=== PATIENT | male | born 2005 | race Caucasian/White ===

== ENCOUNTER 2025-09-20 13:54 | Emergency (ER) | payer BC, SELFPAY ==
--- NOTE | ~2025-09-20 | CT_ITS ---
CLINICAL HISTORY: abdominal pain. blood is stool. colitits? CT abdomen and pelvis without contrast Comparison: None provided Findings: Limited examination without contrast. The lung bases are clear. The gallbladder and solid organs are within normal limits. No renal stones. No bowel obstruction, pneumoperitoneum, or pneumatosis. There is bowel wall thickening of the descending and sigmoid colon. Small pelvic free fluid. Pelvic contents unremarkable. No evidence of acute appendicitis. No acute fracture. IMPRESSION: Bowel wall thickening of the colon concerning for colitis. This document has been electronically signed by: Dianelys Arredondo MD on 09/20/2025 18:44:55
[2025-09-20 14:13] VITALS: BP 138/64; PULSE 75; RESP 18; TEMP 36.8; O2SAT 98; BMI 21.9
--- NOTE | 2025-09-20 14:29 | ED_ITS ---
HPI - General Adult General Chief complaint: GI Bleed Stated complaint: Nausea Vomiting Diarrhea Time Seen by Provider: 09/20/25 19:20 Source: patient Mode of arrival: ambulatory Limitations: no limitations History of Present Illness ED Provider: Hunter Bailey [facility] narrative: 19 yold male presents to the ED for lower abdominal pain and diarrhea after eating a fish meal. patient states slight red blood in stool. Deneies large amount of bleeding, or hemmohrage. patient sttes no recent trauma. Related Data Previous Rx's ?Medication ?Instructions ?Recorded ciprofloxacin HCl 500 mg tablet 500 mg PO BID 7 days # 14 tabs 09/20/25 metronidazole 500 mg tablet 500 mg PO BID 7 days #14 t abs 09/20/25 Allergies Allergy/AdvReac Type Severity Reaction Status Date / Time bonny Allergy Anaphylaxis Verified 09/20/25 14:16 Review of Systems 2 Review of Systems: lower abdominal pain Yes all other systems are reviewed and are negative PMFSH Social History Social History Advance Directives: No Advance Directives Information Provided: No Physical Exam ED Vital Signs: Vital Signs - 24 hr 09/20/25 14:13 Temperature 98.2 F Pulse Rate 75 Respiratory Rate 18 Blood Pressure 138/64 Pulse Oximetry 98 Oxygen Delivery Method Room Air BMI result Body Mass Index 21.9 Const General: cooperative, healthy appearing, comfortable, no acute distress, well developed, alert, awake and Physically active Orientation/consciousness: patient oriented x3 HENMT Head: Yes normal to inspection, Yes No palpable skull fracture present, Yes normocephalic and Yes atraumatic Eyes General: appearance normal, both eyes and all related structures Neck Neck: Yes normal visual inspection, Yes full ROM, Yes no lymphadenopathy, Yes no meningeal signs, Yes trachea midline, Yes supple, No anterior neck swelling and No tender Chest Chest palpation & inspection: normal inspection of the chest and normal palpation of entire chest wall Resp Effort & Inspection: normal respiratory effort and able to speak in complete sentences Auscultation: clear to auscultation bilaterally Cardio Jugular venous distension: no JVD Heart sounds: S1 normal heart sound present and S2 normal heart sound present GI Inspection: Yes normal to inspection Palpation (GI): Soft to palpation, not firm, nontender, no guarding and not rigid General: Yes no CVA tenderness Back/Spine/Pelvis Back: no CVA tenderness and No back tenderness Skin General skin exam: no rashes or lesions noted, elasticity normal and turgor normal Neuro General: patient oriented x3, gait normal, tone normal, moves all extremities, Normal light touch and pain sensation, no meningeal signs, no focal motor deficits, CN's II-XI intact bilaterally and normal sensation to monofilament Extrem General: Yes normal to inspection, Yes full ROM and Yes capillary refill normal Psych Appearance: grossly normal, well kempt and not disheveled Course Course Course Narrative: RME: Medications Administered Discontinued Medications Generic Name Dose Route Start Last Admin Trade Name Romina PRN Reason Stop Dose Admin Metronidazole 500 mg 09/20/25 19:41 09/20/25 19:47 Metronidazole 500 Mg Tablet PO 09/20/25 19:42 500 mg ONCE ONE Administration Medical Decision Making Medical Decision Making [facility] Narrative: 19-year-old male well-appearing presents to ED for lower abdominal pain and diarrhea. Labs are normal. Cat scan shows colitis. Negative for abscess on CAT scan. Patient will be discharged with antibiotics. Patient informed follow up with Gastroenterology primary care provider. NOt albe to do rectal due to patient being in provider triage. patient states no recent blood in stool or hemorrhage. Not suspecting GI bleed, perofration, peritonititis, or any other life threatening etiology. patient explained worrisome signs and informed to retun to the ED. Differential Diagnosis Differential Diagnoses: The differential diagnosis associated with the presentation includes (colitits, appendicitits) Admission/Observation Consideration of admission/observation: Escalation of care including admission/observation considered Lab Data [facility] Lab Attestation statement: I reviewed the patient's lab results. 09/20/25 14:47 09/20/25 14:47 Labs: Lab Results 09/20/25 09/20/25 Range/Units 14:47 15:51 WBC 7.9 (4.8-10.8) X10*3/uL RBC 5.06 (4.60-5.80) X10*6/uL Hgb 15.4 (14.0-18.0) g/dl Hct 45.4 (42.0-52.0) % MCV 89.7 (80.0-98.0) fL MCH 30.4 (27.0-33.0) pg MCHC 33.9 (31.0-36.0) g/dl RDW 11.8 (11.0-16.0) % Plt Count 216 (160-400) X10*3/uL MPV 9.4 (9.4-12.4) fL Immature Gran % (Auto) 0.1 (0.0-0.4) % Neut % (Auto) 71.3 (45-73) % Lymph % (Auto) 16.6 L (20-40) % [place] % (Auto) 11.2 H (2-11) % Eos % (Auto) 0.4 (0-4) % Baso % (Auto) 0.4 (0-2) % Lymph # (Auto) 1.3 (1.2-4.9) X10*3/uL [place] # (Auto) 0.9 (0.1-1.2) X10*3/uL Eos # (Auto) 0.0 (0.0-0.4) X10*3/uL Baso # (Auto) 0.0 (0.0-0.2) X10*3/uL Abs Immat Gran (auto) 0.01 (0.00-0.03) X10*3/uL Absolute Neuts (auto) 5.6 (2.0-8.3) x10*3/uL Absolute Nucleated RBC 0.000 (0.0-0.012) X10*3/uL Nucleated RBC % (auto) 0.0 (0.0-0.2) /100WBC PT 13.4 (11.2-13.5) SEC INR 1.1 (0.9-1.1) APTT 28.6 (26.7-34.1) SEC Sodium 142 (135-145) mmol/L Potassium 5.1 (3.3-5.1) mmol/L Chloride 103 (96-108) mmol/L Carbon Dioxide 30 H (22-29) mmol/L Anion Gap 14 (12-20) BUN 11 (9-16) mg/dL Creatinine 0.98 (0.5-1.4) mg/dL Estim Creat Clear Calc 104.7 Estimated GFR > 60 Random Glucose 94 (60-115) mg/dL Calcium 10.2 (8.4-10.2) mg/dL Total Bilirubin 0.5 (0.0-1.0) mg/dL AST 27 (5-37) U/L ALT 21 (0-40) U/L Alkaline Phosphatase 78 (39-117) U/L Total Protein 8.0 (6.5-8.0) g/dL Albumin 4.8 (3.5-5.0) g/dL Urine Color Yellow Urine Appearance Clear Urine pH 6.0 (5.0-9.0) Ur Specific [place] >= 1.030 H (1.005-1.025) Urine Protein Trace (Neg-Trace) mg/dL Urine Glucose (UA) Negative (Negative) mg/dL Urine Ketones 15 (Negative) mg/dL Urine Blood Negative (Negative) Urine Nitrite Negative (Negative) Ur Leukocyte Esterase Negative (Negative) Influenza Type A (PCR) NEGATIVE (Negative) Influenza Type B (PCR) NEGATIVE (Negative) RSV RNA Qual (PCR) NEGATIVE (Negative) SARS-CoV-2 RNA (RT-PCR) NEGATIVE (Negative) Independent Interpretation I performed an independent interpretation of an: CT Scan Radiology Impression Discussion of test interpretation with radiology: I have reviewed the radiologist's reading. Independent Historian Clinical information obtained from an independent historian. History obtained from or confirmed by: Other (patinet) Prescription Management I considered prescription management with: Antibiotic Discharge Plan Discharge Clinical Impression: Colitis Patient Disposition: Home, Self-Care Instructions: Colitis (ED) Additional Instructions: Recommend follow up with primary care provider and cloth shrinking machine operator helper. You will be discharged with antibiotics. Return to the ED immediately for any profuse blood in stool, abdominal pain, nausea, vomiting, fever, chills, or any other concerning symptoms. [place] [address] CT Scan Report Signed Patient: Karina Wesley MR#: [id number] : 2005 Acct:[id number] Age/Sex: 19 / M ADM Date: 09/20/25 Loc: HO.ED Attending Dr: Ordering Physician: Hunter Bailey Date of Service: 09/20/25 Procedure(s): CT abdomen pelvis wo IV con Accession Number(s): [id number] cc: Hunter Bailey; Physician,Unknown ~ Report Number: [id number]: Total DLP = 325.00 mGy-cm Reason for Exam: abdominal pain. blood is stool. colitits? CLINICAL HISTORY: abdominal pain. blood is stool. colitits? CT abdomen and pelvis without contrast Comparison: None provided Findings: Limited examination without contrast. The lung bases are clear. The gallbladder and solid organs are within normal limits. No renal stones. No bowel obstruction, pneumoperitoneum, or pneumatosis. There is bowel wall thickening of the descending and sigmoid colon. Small pelvic free fluid. Pelvic contents unremarkable. No evidence of acute appendicitis. No acute fracture. IMPRESSION: Bowel wall thickening of the colon concerning for colitis. This document has been electronically signed by: Dianelys Arredondo MD on 09/20/2025 18:44:55 Prescriptions: New metronidazole 500 mg tablet 500 mg PO BID 7 Days Qty: 14 0RF ciprofloxacin HCl 500 mg tablet 500 mg PO BID 7 Days Qty: 14 0RF Referrals: [facility] [Provider Group, Gastroenterology] - 2 days Referral Note: Colitis Clinical Impression: Colitis Stand Alone Forms: Work/School Release Interventions: ED Discharge Assessment Last Done: 09/20/25 19:49 Discharge Date/Time: 09/20/25 19:50 Print Language: Barbadian
[2025-09-20 14:59] LABS: MANUAL DIFF FLAG NO
[2025-09-20 15:02] LABS: Hematocrit 45.4 % (42.0-52.0); Hemoglobin 15.4 g/dl (14.0-18.0); Imm Gran Abs Auto 0.01 X10*3/uL (0.00-0.03); Imm Gran Pct Auto 0.1 % (0.0-0.4); Lymphocytes Absolute Auto 1.3 X10*3/uL (1.2-4.9); Mean Corpuscular HGB Conc 33.9 g/dl (31.0-36.0); Mean Corpuscular Hemoglobin 30.4 pg (27.0-33.0); Mean Corpuscular Volume 89.7 fL (80.0-98.0); NRBC Abs Auto 0.000 X10*3/uL (0.0-0.012); NRBC Pct Auto 0.0 /100WBC (0.0-0.2); Platelet Count 216 X10*3/uL (160-400); Red Blood Count 5.06 X10*6/uL (4.60-5.80); White Blood Count 7.9 X10*3/uL (4.8-10.8)
[2025-09-20 15:12] LABS: INTERNATIONAL NORM RATIO 1.1 (0.9-1.1); Partial Thromboplastin Time 28.6 SEC (26.7-34.1); Prothrombin Time 13.4 SEC (11.2-13.5)
[2025-09-20 15:18] LABS: Alanine Aminotransferase 21 U/L (0-40); Albumin Level 4.8 g/dL (3.5-5.0); Alkaline Phosphatase 78 U/L (39-117); Anion Gap 14 (12-20); Aspartate Amino Transferase 27 U/L (5-37); Blood Urea Nitrogen 11 mg/dL (9-16); Calcium 10.2 mg/dL (8.4-10.2); Carbon Dioxide 30 mmol/L (22-29); Chloride 103 mmol/L (96-108); Creatinine Clr Calc Pharmacy 104.7; Estimated Glomerular Filt Rate > 60; Potassium 5.1 mmol/L (3.3-5.1); Sodium 142 mmol/L (135-145); Total Protein 8.0 g/dL (6.5-8.0)
[2025-09-20 15:46] LABS: Resp Syncy Virus RNA Qual PCR NEGATIVE (Negative); SARS COV2 PCR INHOUSE NEGATIVE (Negative)
[2025-09-20 16:10] LABS: Appearance Urine Clear; Glucose Urine UA Negative (Negative); PH 6.0 (5.0-9.0); Specific Gravity - Urine >= 1.030 (1.005-1.025)
[2025-09-20 19:22] VITALS: BP 101/66; PULSE 66; RESP 16; TEMP 36.8; O2SAT 100
[2025-09-20 19:49] VITALS: BP 101/66; PULSE 66; RESP 16; TEMP 36.8; O2SAT 100
--- OUTSIDE RECORDS SUMMARY | 2025-09-20 23:20 | XMS_ITS | Encounter Summary ---
Author Organization [facility] Address [address] [place] [id number] Phone Care Team Providers Care Straightening Roll Operator Name Role Phone Indiana Stephenson MD Primary Care Provider Reason for Visit * Reason Onset Date Comments order placed 09/20/2025 Encounter Details Date Type Department Care Team (Late st Contact Info) Description 09/20/2025 Telephone [facility] [place] [address] Jia [email or web address] order placed Social History Tobacco Use Types Packs/Day Years Used Date Smoking Tobacco: Never Smokeless Tobacco: Never Alcohol Use Standard Drinks/Week Comments Never 0 (1 standard drink = 0.6 oz pur e alcohol) Child or Family Care Answer Date Record ed Do you have problems with on e of the following making it difficult for you to work, study, or receive health care? No 10/21/2023 Education Answer Date Recorded Are you interested in more education? Not on sophia e 10/21/2023 Are you concerned about your learning, performance, or behavior in school? No 10/21/2023 No 10/21/2023 Yes 10/21/2023 Food Answer Date Recorded Within the past 6 months we worried whether our food would run out before we got money to buy more. Never True 10/21/2023 Within the past 6 months the food we bought just didn't last and we didn't have enough money to get more. Never True Residential Stability Answer Date Recor ded What is your housing situation today? I have becki wasserman 10/21/2023 How many times have you move d in the past 12 months? Zero (I did not move) 10/21/2023 Paying for Meds Answer Date Recorded Do you have trouble paying for medicines? No 10/21/2023 Paying Utility Bills Answer Date Record ed Do you have trouble paying your heating or elect ricity bill? No 10/21/2023 Transportation Answer Date Recorded Has the lack of transportati on kept you from medical appointments or from getting medications? No 10/21/2023 Digital Access Answer Date Recorded No 10/21/2023 Yes 10/21/2023 Do you have reliable internet access at home? Ye s 10/21/2023 Do you have a device (e.g., phone, tablet, computer) with a working camera? Yes 10/21/2023 Intimate Partner Violence Answer Date R ecorded Are you denied basic needs s uch as food, clothing, or medical care? No 02/27/2024 In the past 12 months have y ou been in a relationship with a person who hurts, threatens, or tries to control you? No 02/27/2024 Are you denied basic needs s uch as food, clothing, or medical care? No 02/27/2024 In the past 12 months have y ou been in a relationship with a person who hurts, threatens, or tries to control you? No 02/27/2024 Sex and Gender Information Value Date Recorded Sex Assigned at Male 02/27/2024 10:59 AM EDT Legal Sex Male 5:41 PM EST Gender Identity Male 02/27/2024 10:59 AM EDT Sexual Orientation Straight 02/27/2024 10 :59 AM EDT documented as of this encounter Progress Notes * Jia Carpenter - 09/20/2025 11:50 AM EST Order placed documented in this encounter Plan of Treatment Upcoming Encounters Date Type Department Care Team (Late st Contact Info) Description 09/27/2025 10:45 AM EST Office Visit [facility] [place] [address] Alexa Dorsey NP [address] [place] [address] documented as of this encounter Visit Diagnoses Not on filedocumented in this encounter Additional Health Concerns Assessment Noted Time PHQ-2 Depression Total Score: 0 10/22/19 25 3:26 PM EST documented as of this encounter Care Teams Straightening Roll Operator Relationship Specialty Start Date End Date Indiana Stephenson MD [address] [place] [address] PCP - General Family Medicine 12/04/23 documented as of this encounter Additional Source Comments The information contained in this document represents components of the legal health record. It is not the complete legal health record.[facility]
--- OUTSIDE RECORDS SUMMARY | 2025-09-20 23:21 | XMS_ITS | Clinical Summary ---
Author Organization [facility] Address [address] [place] [address] Phone Care Team Providers Care Oleomargarine Maker Name Role Phone Indiana Stephenson MD Primary Care Provider Allergies Active Allergy Reactions Criticality Noted Date Comments Cat Hair Std Allergenic Ext Sneezing 09/25/20 22 Matias Rash Low 05/16/2021 Around mouth Medications doxycycline hyclate (DORYX) 100 MG tablet TAKE ONE TABLET BY MOUTH TWICE A DAY X 7 DAYS 09/13/2024 Active Active Problems Problem Noted Date Diagnosed Date Impetigo 10/22/2024 Assessment & Plan (10/22/2024 3:43 PM EST): Patient is to start a course of keflex to treat any underlying infection. Follow up if scab fails to improve or worsens. Nasal injury, sequela 10/22/2024 Assessment & Plan (10/22/2024 4:17 PM EST): Patient appears to have some mild septal deviation which probably resulted from the trauma from the fall while wrestleing. Did recomendto try a course of Zyrtec or Allgra for the mucus production. Will refer to otolaryngology for further management and evaluation. Patellar subluxation, left, initial encounter Assessment & Plan (05/05/2024 2:02 PM EDT): No more active symptoms Patient was provided with home exercise plan Suggest HEP and gym exercises Use of Chopat double action knee brace when working out F/U PRN Assessment & Plan (03/03/2024 9:57 AM EDT): Reviewed with patient the nature of the condition and need for PT Plan is for him to start PT Advised to avoid positions that may cause subluxation F/U in 8 weeks for recheck prior to returning to college. Skin pimple 01/21/2023 Assessment & Plan (01/21/2023 3:29 PM EDT): Pt presents c/o small white lesion on the edge of the top lip. He reports this was a pimple which he squeezed. There ripped of the scab that was formed there. Now the area has scared. He was concerned this was col sore which it is not. Pt was reassured . Allergic dermatitis 05/16/2021 Assessment & Plan (05/16/2021 2:00 PM EDT): Patient is a 15-year-old boy who presents for ER follow-up. He was seen in the ED after developing perioral swelling and itchiness following matias ingestion. This happened twice. Both times after eating matias. Second episode more dramatic. He was given prednisone in the ER to which she responded well. Swelling has subsided. He does have some skin peeling around his lips. Pruritus is no longer present. This most likely allergic reaction. We have added matias to his allergy list. Of note, patient does have severe reaction to poison naif, poison oak, poison sumac. Advised to wear protective clothing when going to the [employer] or [employer]. Well adolescent visit 07/04/2017 Assessment & Plan (09/25/2022 11:09 AM EST): 16 y.o. year old child meeting growth and developmental milestones. Age- appropriate anticipatory guidance and risk avoidance reviewed. Vehicle safety, substance use/abuse, and precautions for safer sex behaviors reviewed. Testicular SE reviewed, info given. Dental UTD. Vaccine reccs reviewed and parent agrees to immunizations as below. Sun protection and ticks reviewed. Flu shot given. Questions answered and caregiver aware to call before next WCC if concerns. Assessment & Plan (07/05/2021 3:13 PM EDT): 15 y.o. year old child meeting growth and developmental milestones. Age- appropriate anticipatory guidance and risk avoidance reviewed. Vehicle safety, substance use/abuse, and precautions for safer sex behaviors reviewed. Testicular SE reviewed, info given. Dental UTD. Vaccine reccs reviewed and parent agrees to immunizations as below. All other vaccines and health maintenance declined at this time. Flu shot declined. Questions answered and caregiver aware to call before next WCC if concerns. Assessment & Plan (02/05/2021 12:12 PM EDT): 15-year-old boy who presents for well visit. No complaints. Received first Covid vaccine ([employer]) on Friday last week. On Friday he developed symptoms of headache, sore throat, vomiting, diarrhea. Symptoms lasted through Friday and Friday. Patient had fever on Friday and Friday of 101.2. Responded to Tylenol. Today afebrile. No vomiting but diarrhea persists. Patient thought this was side effects to vaccine. Onset of symptoms 3 days after vaccine consistent with viral gastroenteritis. Unlikely related to vaccine. Possibly Covid. We will set up testing as outpatient. It is unlikely related to Covid vaccine but will check with allergy/immunology. Physical exam within normal limits. Anticipatory guidelines reviewed and discussed. Vaccinations: Up-to-date Assessment & Plan (09/07/2019 10:32 AM EST): Well adolescent meeting milestones. Age appropriate risk avoidance reviewed as well as positive self-image, respectful relationships, communication w/parents. Reviewed supportive measures r/t cough. Call/RTO w/concerns. Received flu and MCV4 vaccines today. Assessment & Plan (06/12/2018 3:49 PM EDT): He appears to be in very good physical and emotional health. Mild scoliosis noted. Immunizations up-to-date receiving hepatitis A today because of travel planned to [place] Encounters Date Type Department Care Team Description 09/20/2025 Telephone [facility] [address] Brittnee Rivera, [place] [address] Jia Carpenter order placed from Last 3 Months Immunizations Immunization Administration Dates Next Due COVID-19 (Pre-08/04) Pfizer Vaccine, mRNA, PF 03/03/2021,01/30/2021 DTaP, unspecified formulation 01/10/2009 ,11/10/2006,09/30/2005,08/14,06/11/2005,03/01/2005 [id number] FORMULATION 09/18/2009 HPV9 06/12/2018,07/04/2017 Hepatitis A, ped/adol, 2 dose 09/25/2022, 018 Hepatitis B 09/25/2022 Hepatitis B, unspecified formulation 09/30/2005, 08/14/2005,03/01/2005 Hib, unspecified formulation 12/30/2005, 08/14/2005,06/11/2005,03/01 Influenza Quadrivalent Intranasal 08/22/2014 Influenza Quadrivalent Prese rvative Free IM 09/25/2022,09/06/2019,09/17/2017 Influenza, Unspecified Formulation 12/07(Deferred: Parental Decision - 00),07/02/2011,08/23/2010,08/07/2009,1 ,10/13/2005 MMR 06/01/2010,11/10/2006 Meningococcal MCV4O 07/05/2021 Meningococcal MCV4P 09/06/2019 Pneumococcal conjugate, PCV 7 12/30/2005 ,08/14/2005,06/11/2005,03/01 Polio, Unspecified Formulation 9,09/20/2005,08/14/2005,03/01 Tdap 09/12/2016 Varicella 06/01/2010,11/10/2006 Family History Medical History Relation Comments Breast cancer Maternal Grandmother breast canc er Hypertension Maternal Grandmother hypertensio n Aneurysm Paternal Grandfather Relation Status Comments Father Alive Maternal Grandfather Maternal Grandmother Alive Mother Alive Paternal Grandfather Paternal Grandmother Alive Sister Alive Social History Tobacco Use Types Packs/Day Years Used Date Smoking Tobacco: Never Smokeless Tobacco: Never Tobacco Cessation:Counseling Given: Not Answered Alcohol Use Standard Drinks/Week Comments Never 0 [...] your housing situation today? I have becki sing 10/21/2023 How many times have you move [...] Orientation Straight 02/27/2024 10 :59 AM EDT Last Filed Vital Signs Vital Sign Reading Time Taken Comments Blood Pressure 114/86 10/22/2024 3:14 PM EST Pulse 86 10/22/2024 3:14 PM EST Temperature 36.4 C (97.6 F) 02/27/2024 11:46 AM EDT Respiratory Rate 16 02/27/2024 11:46 AM EDT Oxygen Saturation 100% 10/22/2024 3:14 PM EST Inhaled Oxygen Concentration - - Weight 67.1 kg (148 lb) 02/27/2024 10:34 AM EDT Height 167.6 cm (5' 5.98 ) 10/22/2024 3:14 PM ES T Body Mass Index 23.89 02/27/2024 10:34 AM EDT Plan of Treatment Upcoming Encounters Date Type Department Care Team (Late st Contact Info) Description 09/27/2025 10:45 AM EST Office Visit [facility] [place] [address] Alexa Dorsey, MONIQUE [address] [place] [address] Health Maintenance Due Date Last Done Comments MENINGOCOCCAL VACCINES (B) (1 of 2 - Standard) 2020 INFLUENZA VACCINE (#1) 2025 , 09/06/2019, 09/17/2017, Additional history exists COVID-19 VACCINE ( season) 2025 12/23/2021, 03/03/2021, 01/30/2021 DEPRESSION SCREENING 10/22/2025 10/22/2024 DEVELOPMENTAL/BEHAVIORAL SCREENING (PHQ, PSC, or SWYC) 10/22/2025 10/22/2024 SMOKING Hx and SMOKELESS TOBACCO SCREENING 10/22/2025 10/22/2024 COMBINED DTaP,Tdap,Td (7 - Td or Tdap) 09/12/2026 09/12/2016, 01/10/2009, 11/10/2006, Additional history exists HIB VACCINES Completed 12/30/2005, 11/2004, 06/11/2005, Additional history exists PNEUMOCOCCAL VACCINES (0-49 years) Aged Out 12/30/2005, 08/14/2005, 06/11/2005, Additional history exists No longer eligible based on patient's age to complete this topic MMR VACCINES Completed 06/01/2010, 11/10/2006 VARICELLA VACCINES Completed 06/01/2010, 11/10/2006 HPV VACCINES Completed 06/12/2018, 07/04/2017 MENINGOCOCCAL VACCINES (ACWY) Completed 07/05/2021, 09/06/2019 HEPATITIS A VACCINES Completed 09/25/2022, 06/12/20 18 ADOLESCENT UNIVERSAL LIPID SCREENING Completed 10/22/2023 HEPATITIS C SCREENING Completed 10/22/2023 HIV ONE-TIME SCREENING (18-65 YEARS) Completed 10/22/2023 Medical Devices Not on file Procedures Procedure Name Priority Date/Time Associated Diagnosis Comments LIPID PANEL Routine 10/22/2023 9:57 AM EST Screening for lipid disorders HEPATITIS C ANTIBODY, QUALITATIVE Routine 10/22/2023 9:57 AM EST Need for hepatitis C screening test from Last 3 Months or Most Recently Relevant to Health Maintenance Results * Hepatitis C antibody, qualitative (10/22/2023 9:57 AM EST) HCV ANTIBODY Nonreactive Nonreactive [facility] 10/22/2023 9:57 AM EST 10/22/2023 10:18 AM EST us Izzy Sutherland MD LAB BLOOD [place] [address] * (ABNORMAL) Lipid panel (10/22/2023 9:57 AM EST) HDL 32(L) >65 mg/dL [facility] Comment: FAVORABLE: >55 mg/dL RISK LEVEL: 35-55 mg/dL RISK INDICATOR: <35 mg/dL CHOLESTEROL 165 0 - 200 mg/dL [facility] Comment:DESIRABLE: <200 TRIGLYCERIDES 90 0 - 200 mg/dL [facility] LDL 115 mg/dL [facility] Comment:DESIRABLE: <130 CARDIAC RISK RATIO 5.2(H) 0.0 - 5.0 M [facility] Comment:NORMAL RISK RATIO: 5 .0 OR LESS 10/22/2023 9:57 AM EST 10/22/2023 10:18 AM EST Izzy Sutherland MD LAB BLOOD [place] [address] from Last 3 Months or Most Recently Relevant to Health Maintenance Insurance [facility] OUT OF STATE PPO Member Subscriber Plan / Payer (Ef fective 2024-Present) Name:Karina Wesley Relation to Subscriber:Child Name:ANIRUDH WESLEY Date of :1970 (Home) Address: [address] [place] [address] Payer ID:[id number] (NAIC) Type:PPO Address: [address] [place] [id number] [employer] OUT OF STATE PPO [employer] OUT OF STATE PPO [employer] OUT OF STATE PPO [employer] OUT OF STATE PPO BL[employer] OUT OF STATE PPO Care Teams Oleomargarine Maker Relationship Specialty Start Date End Date Indiana Stephenson MD [address] [place] [id number] [email or web address] PCP - General Family Medicine 12/04/23 Additional Source Comments The information contained in this document represents components of the legal health record. It is not the complete legal health record.[facility]
== END 2025-09-20 19:50 | disposition home or self-care (01) ==
LOC: HO.ED 19:43
PROVIDERS: Physician Assistant; Emergency Provider Student in an Organized Health Care Education/Training Program
DX: K52.9 Noninfective gastroenteritis and colitis, unspecified (principal); R11.2 Nausea with vomiting, unspecified; R10.30 Lower abdominal pain, unspecified; Z03.818 Encounter for observation for suspected exposure to other biological agents ruled out
CPT/HCPCS: 74176; 80053; 81003; 85025; 85610; 85730; 87637; 99283; 99284

== ENCOUNTER → 2025-09-20 16:55 | Outpatient (BNV) | payer BC, SELFPAY | PROVIDERS: Visit Provider Nuclear Medicine | DX: K63.89 Other specified diseases of intestine (principal) | CPT/HCPCS: 74176 ==